=== PATIENT | female | born 1995 | race Caucasian/White ===

== ENCOUNTER 2024-02-23 05:38 | Inpatient (IN) ==
--- NOTE | 2024-02-07 11:57 | Anesthesiology Consultation ---
Date of Service February 07, 2024 Assessment & Plan (1) Encounter for pre-operative examination: - cardiology office visit 07/28/23 [place]: "...Autonomic dysfunction seems to have improved (no orthostatic BP drop today) and heart rate response to activity during exercise treadmill test was not extreme. Strongly encouraged regular aerobic exercise (even during ) to decrease adrenergic drive and hopefully diminish tachycardic response to activity or anxiety provoking stimuli. Although her mild intermittent leg edema does not seem to be due to volume retention, reasonable to moderate her sodium intake during , increase intake a few months after delivery. Would be very reluctant to use a beta-chelsie during or even afterwards, given that her sinus tachycardia is largely an exaggerated physiologic response which we would be reluctant to blunt. Her episode of palpitations today is consistent with sinus tachycardia, reassured her that although it is unpleasant it was not placing her at risk and that she could safely perform physical activity regularly to decrease the frequency of palpitations, particularly since her test did not show any adverse response to exercise. We did discuss her prior diagnoses of SVT and ventricular ectopy, although these cannot be excluded they are unlikely to play a role in her day-to-day symptomatic tachycardia. She has a pulse oximeter and will use this to record her heart rates and report any abrupt nonexertional rise to extreme levels (greater than 150 bpm) as well as to record her resting heart rate and to monitor for improvement as she increases her aerobic exercise program. She will report any unusual heart rate responses which could prompt an MCOT monitor...rather benign (PVCs were rare, but there was 1 triplet). Would first manage autonomic dysfunction and then reevaluate with MCOT monitor if palpitations persist...SVT: (supraventricular tachycardia): Not well documented, but she does note periods of abrupt increase in heart rate without position change, so difficult to exclude. In the absence of more definitive documentation and given the presence of orthostatic hypotension would be very reluctant to initiate beta-chelsie, even at low-dose, since this would blunt her physiologic response to orthostatic hypotension..." - Per specifications checker on 02/07/24: No known infectious disease contacts, current infectious disease symptoms in past 10 days or COVID positive test result in the past 30 days. 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 Surgery Operation Date: 02/23/24 07:30 Proposed Procedures p Section in LD (Delivery of Baby Through Abdominal Incision) - Estefania Figueredo DO Height/Weight Height: 5 ft 10 in Weight: 86.183 kg Allergies Allergy/AdvReac Type Severity Reaction Status Date / Time No Known Drug Allergies Allergy Verified 02/07/24 11:12 Medications Home Medications Medication Instructions Recorded Confirmed Last Taken lactobacillus combination no.4 3 3,000 mmu cells PO DAILY 06/16/21 02/07/24 Unknown billion cell capsule (Probiotic) rutin 500 mg tablet 500 mg PO QPM 06/16/21 02/07/24 Unknown 21-iron fu-folic acid 1 tab PO QAM 07/11/23 02/07/24 Unknown [ Complete] hydrocortisone 2.5 % topical cream 1 applic [place] DAILY PRN hemorrhoids 12/05/23 02/07/24 Unknown with perineal applicator #30 grams (Proctozone-HC) fluoxetine 40 mg capsule 80 mg PO QPM 02/07/24 02/07/24 Unknown Past Medical History Medical History Anxiety Autonomic dysfunction has bp drop when changing positions and tachycardia, follows with Dr. Degroot at [facility] Depression Hemorrhoids History of COVID-19 (~2019) not hospitalized, resolved Hx of migraines monthly when not Orthostatic hypotension reports BP drop when changing positions PTSD (post-traumatic stress disorder) PVC's (premature ventricular contractions) "slight" follows with Dr. Bahena [facility] SVT (supraventricular tachycardia) autonomic dysfunction, follows with Dr. Bahena [facility] Past Family History Family History Mother Anxiety Depression Sister Anxiety Depression Asthma Father Hypertension Afib Smoker Grandfather (Paternal) Colorectal cancer Denies family history of Ovarian cancer Breast cancer Past Surgical History Surgical History History of tonsillectomy Status post section (10/2020) Status post incision and drainage (10/2020) thrombosed hemorrhoid [place] teeth extracted Social History Smoking Status: Never smoker Do You Dip or Chew Tobacco: No Hx Alcohol Use: No Hx Substance Use: No substance use type: does not use Testing Stress Test Date: 07/28/23 MPHR 87% Negative for myocardial ischemia or dysrhythmia
--- NOTE | 2024-02-22 16:51 | History & Physical Report ---
Date of Service February 22, 2024 Assessment & Plan (1) Previous delivery affecting , antepartum: Plan: Plan for delivery via section. Informed consent reviewed in detail in the office. Questions answered. Plan for dermabond, not steri strips. History of Present Illness Chief Complaint: Repeat Section Primary Care Provider: Elizabet Guaman DO 28yo @ 41 02/04, scheduled for repeat . Previous *planning repeat C/S SCHEDULED WITH DR. GREGORY FOR 02/22 Symptomatic hemorrhoids/anal fissures Autonomic Dysfunction *Follows with cardiology GBS + treat in labor Allergies Allergy/AdvReac Type Severity Reaction Status Date / Time No Known Drug Allergies Allergy Verified 02/22/24 10:41 Home Medications Medication Instructions Recorded Confirmed Type lactobacillus combination no.4 3 3,000 mmu cells PO DAILY 06/16/21 02/22/24 History billion cell capsule (Probiotic) rutin 500 mg tablet 500 mg PO QPM 06/16/21 02/22/24 History 21-iron fu-folic acid 1 tab PO QAM 07/11/23 02/22/24 History [ Complete] hydrocortisone 2.5 % topical cream 1 applic [place] DAILY PRN hemorrhoids 12/05/23 02/22/24 Rx with perineal applicator #30 grams (Proctozone-HC) fluoxetine 40 mg capsule 80 mg PO QPM 02/07/24 02/22/24 History Patient History Medical History Anxiety Autonomic dysfunction has bp drop when changing positions and tachycardia, follows with Dr. Degroot at [facility] Depression Hemorrhoids History of COVID-19 (~2019) not hospitalized, resolved Hx of migraines monthly when not Orthostatic hypotension reports BP drop when changing positions PTSD (post-traumatic stress disorder) PVC's (premature ventricular contractions) "slight" follows with Dr. Bahena [facility] SVT (supraventricular tachycardia) autonomic dysfunction, follows with Dr. Bahena [facility] Surgical History History of tonsillectomy Status post section (10/2020) Status post incision and drainage (10/2020) thrombosed hemorrhoid [place] teeth extracted Family History Mother Anxiety Depression Sister Anxiety Depression Asthma Father Hypertension Afib Smoker Grandfather (Paternal) Colorectal cancer Denies family history of Ovarian cancer Breast cancer Social History Smoking Status: Never smoker Second Hand Exposure: No; Do You Dip or Chew Tobacco: No; Hx Alcohol Use: No Hx Substance Use: No Preferred Language: Kenyan Communication Ability: Effective Visual Impairment: No Limitations Hearing Ability: Normal Food And Nutrition Teacher Required: No Beliefs That Will Affect Care: None marital status: marital status details: Ludin Huerta (30) [phone] Current Living Situation: Spouse and Family Current Living Situation Comment: spouse and daughter, dog, cats-spouse changing litter current occupational status: unemployed current occupation: homemaker How many Children do You have: 1 Feels Safe at Home: Yes Childhood Exposure to Second-Hand Smoke: Yes Diet: regular Diet Comment: regular caffeine: No during the past year weight has: remained stable Dental Care, Regularly: Yes Physical Activity Frequency: Daily Seatbelt Use: always Sunscreen Use: Yes Assistive Devices: Glasses and Other Review of Systems All systems reviewed & are unremarkable except as noted in HPI & below Physical Exam Constitutional: WD/WN, vitals as above Respiratory: normal respiratory effort, lungs clear to auscultation no respiratory distress Cardiovascular: Rate/Rhythm: regular rate and regular rhythm Gastrointestinal (Abdomen): Inspection/Auscultation: abdomen normal to inspection Percussion/Palpation: abdomen soft; abdomen nontender Gravid. No s/s chorio or abruption. Skin: no rashes, warm and dry Psychiatric: A+Ox3, euthymic affect Coding Level of Care Code None Diagnoses Previous delivery affecting , antepartum O34.219
[2024-02-23] MEDS: LACTATED RINGER'S 1,000 ML IV SCH ×2 (06:00→06:58)
[2024-02-23 06:09] LABS: Hematocrit (blood only) 30.7 % (37.0-47.0); Hemoglobin 9.5 g/dl (12.0-16.0); Mean Corpuscular Hgb Conc 30.9 g/dL (32.0-36.0); Mean Corpuscular Volume 83.9 fL (80.0-100.0); Mean Platelet Volume 10.7 fL (9.4-12.4); Platelet Count 178 K/uL (130-400); RDW Coefficient of Variation 15.3 % (11.5-14.5); RDW Standard Deviation 46.3 fL (36.4-46.3); Red Blood Count 3.66 M/uL (4.20-5.40); White Blood Count 8.18 K/ul (4.8-10.8)
--- NOTE | 2024-02-23 07:15 | History & Physical Bridge Note ---
Date of Service February 23, 2024 History & Physical Bridge Note I have examined the patient, reviewed the History & Physical and in the interval since the performance of the History & Physical I have noted the following changes of clinical significance: no changes noted
[2024-02-23] MEDS ORDERED: OXYTOCIN 10 UNITS/ML VIAL ONE (07:25)
[2024-02-23] MEDS ORDERED: ONDANSETRON INJ 2 MG/ML 2 ML VIAL ONE ×2 (07:25→08:21)
[2024-02-23] MEDS ORDERED: PHENYLEPHRINE HCL 10 MG/ML VIAL ONE (07:25)
[2024-02-23] MEDS ORDERED: KETOROLAC 30 MG/ML VIAL ONE (07:26)
[2024-02-23] MEDS ORDERED: MoRPHine SULFATE PF 1 MG/ML 10 ML AMP/VIAL ONE (07:26)
[2024-02-23] MEDS: ceFAZolin 2,000 MG in SYRINGE 0 ML IV SCH (07:34)
--- NOTE | 2024-02-23 07:34 | Anesthesiology Consultation ---
Date of Service February 23, 2024 Assessment & Plan Chart Review Chart Review: Acceptable Risk for Surgery and Patient NOT seen in Pre Admission Testing Consults Requested none ASA ASA2 Proposed Anesthesia Anesthesia Type: Spinal (+ intrathecal narcotics) Risk / Benefits Reviewed With: PT / POA / Parent / Guardian, Accepts Plan and Informed Consent Obtained History Surgery Operation Date: 02/23/24 07:30 Proposed Procedures p Section in LD (Delivery of Baby Through Abdominal Incision) - Estefania Figueredo DO Height/Weight Height: 5 ft 10 in Weight: 85.729 kg Allergies Allergy/AdvReac Type Severity Reaction Status Date / Time No Known Drug Allergies Allergy Verified 02/22/24 10:41 Medications Home Medications Medication Instructions Recorded Confirmed Last Taken lactobacillus combination no.4 3 3,000 mmu cells PO DAILY 06/16/21 02/23/24 01/20/24 billion cell capsule (Probiotic) rutin 500 mg tablet 500 mg PO QPM 06/16/21 02/23/24 02/08/24 21-iron fu-folic acid 1 tab PO QAM 07/11/23 02/23/24 01/20/24 [ Complete] hydrocortisone 2.5 % topical cream 1 applic [place] DAILY PRN hemorrhoids 12/05/23 02/23/24 02/22/24 20:00 with perineal applicator #30 grams (Proctozone-HC) fluoxetine 40 mg capsule 80 mg PO QPM 02/07/24 02/23/24 02/22/24 22:00 NPO Date Last Intake of Fluids: 02/22/24 Time Last Intake of Fluids: 21:00 Date Last Intake of Solids: 02/22/24 Time Last Intake of Solids: 21:00 Past Medical History Medical History Anxiety Autonomic dysfunction has bp drop when changing positions and tachycardia, follows with Dr. Degroot at [facility] Depression Hemorrhoids History of COVID-19 (~2019) not hospitalized, resolved Hx of migraines monthly when not Orthostatic hypotension reports BP drop when changing positions PTSD (post-traumatic stress disorder) PVC's (premature ventricular contractions) "slight" follows with Dr. Bahena [facility] SVT (supraventricular tachycardia) autonomic dysfunction, follows with Dr. Bahena [facility] Exercise / Class Metabolic Activity II 4-5 Yardwork/Stairs/Walk up hill Past Family History Family History Mother Anxiety Depression Sister Anxiety Depression Asthma Father Hypertension Afib Smoker Grandfather (Paternal) Colorectal cancer Denies family history of Ovarian cancer Breast cancer Past Surgical History Surgical History History of tonsillectomy Status post section (10/2020) Status post incision and drainage (10/2020) thrombosed hemorrhoid [place] teeth extracted Past Anesthesia History No Hx of Anesthesia Complications and No Family Hx of Anesthesia Complications History of PONV No Hx of PONV and No Hx of Motion Sickness Social History Smoking Status: Never smoker Do You Dip or Chew Tobacco: No Hx Alcohol Use: No Hx Substance Use: No substance use type: does not use Physical Exam Vital Signs Last Vital Signs Temp 36.5 C 02/23/24 05:55 Pulse 96 H 02/23/24 07:12 Resp 20 02/23/24 07:16 BP 135/84 02/23/24 07:12 ENMT Mouth: no dentition abnormality Thyromental Distance: > or= 3.5 Finger Breadths Mallampati Class: II Neck normal visual inspection Respiratory normal respiratory effort Auscultation: lungs clear to auscultation bilaterally Cardiovascular Rate/Rhythm: regular rate and regular rhythm Psychiatric Orientation: alert Testing Laboratory Results 02/23/24 05:55 Blood Type A Positive 02/23/24 05:55 Antibody Screen NEGATIVE 02/23/24 05:55 Stress Test Date: 07/28/23 MPHR 87% Negative for myocardial ischemia or dysrhythmia
[2024-02-23] MEDS: CITRIC ACID/SODIUM CITRATE 15 ML UDC PO SCH (07:39)
--- NOTE | 2024-02-23 08:49 | Operative Report ---
PG Post Operative Report Pre & Post Diagnosis Operation Date: 02/23/24 07:30 Pre: history of x 1, desire for repeat Post: same I identified the patient and participated in the time-out.: Yes Procedure Operation Date: 02/23/24 07:30 Repeat low transverse section Surgeon Estefania Figueredo, DO Inside Steward/Stewardess Coleman Conway MD Estimated Blood Loss 371 (QBL) Findings Consistent with Post-Op Diagnosis Viable male , Apgars 8/9. Normal appearing uterus, tubes, ovaries . Specimens cord gas, cord blood, placenta Drains [place] clear yellow Anesthesia Type Spinal Complications none Disposition Accompanied Patient To Recovery: Yes Disposition: L&D Indications 28yo @ 41 02/04, history of section x 1, desire for repeat. Description of Procedure The patient was seen in her labor and delivery room, risks benefits and alternatives to surgery were reviewed. Informed consent obtained. Questions were answered. She was taken to the operating room, spinal anesthesia was administered. She was then prepared and draped in the usual sterile fashion in the supine position with a leftward tilt. Timeout was confirmed. A Pfannenstiel skin incision was made with a scalpel, and carried through to the underlying layer of fascia. Fascia was nicked at midline, and this incision was extended bilaterally. The superior aspect of the fascial incision was grasped with Mei clamps x2, elevated off the underlying rectus abdominis muscles, and dissected sharply and bluntly. In similar fashion, the inferior aspect of the fascial incision was dissected. The rectus abdominis muscles were , and the peritoneum was entered bluntly digitally. This was extended bilaterally. The bladder flap was taken down carefully using Metzenbaum scissors. Using a new scalpel, a low transverse uterine incision was created. Clear amniotic fluid noted. The infant was delivered from a cephalic presentation. The head delivered, followed by shoulders and body. Spontaneous cry on the field. The cord was doubly clamped and cut, and the was handed off to the waiting superintendent schools. A segment was retained for cord gases. Cord blood was obtained. The placenta was delivered spontaneously intact. The uterus was exteriorized, and cleared of all clots and debris. The hysterotomy incision was reapproximated using 0 Vicryl in a running locked stitch. A second layer of the same suture was used to imbricate the incision. Posterior uterus was evaluated and normal. The uterus was returned to the abdomen, and gutters were cleared of clots and debris. Excellent hemostasis was observed. The fascial incision was reapproximated using 0 Vicryl in a running stitch. The subcutaneous tissue was irrigated, and reapproximated using 2-0 plain gut in a running stitch. The skin was reapproximated using 4-0 Vicryl in a running subcuticular stitch. Dermabond was applied. The patient tolerated the procedure well, and will be taken to the recovery area in stable and good condition. I attest to the content of the Intraoperative Record and any orders documented therein. Any exceptions are noted below. OB Procedure Charges 79298
[2024-02-23] MEDS ORDERED: IBUPROFEN 600 MG TAB PO PRN (08:55)
[2024-02-23] MEDS ORDERED: LACTATED RINGER'S 1,000 ML IV SCH (08:55)
[2024-02-23] MEDS ORDERED: MAGNESIUM HYDROXIDE SUSP 30 ML UDC PO PRN (08:55)
[2024-02-23] MEDS ORDERED: HYDROCORTISONE ACETATE 25 MG SUPP PR PRN (08:55)
[2024-02-23] MEDS ORDERED: BENZOCAINE 20% SPRY 85 APPLN/85 GM CAN EXT PRN (08:55)
[2024-02-23] MEDS ORDERED: SENNA 8.6 MG TAB PO PRN (08:55)
[2024-02-23] MEDS ORDERED: LACTATED RINGER'S 500 ML IV PRN (08:59)
[2024-02-23] MEDS ORDERED: PROMETHAZINE HCL 6.25 MG in SODIUM CHLORIDE 0.9% 50 ML IV PRN (08:59)
[2024-02-23] MEDS ORDERED: NALOXONE HCL 0.08 MG in SYRINGE 1.8 ML IV PRN (08:59)
[2024-02-23] MEDS ORDERED: ePHEDrine sulfate 50 MG/ML AMP IV PRN (08:59)
[2024-02-23] MEDS ORDERED: NALBUPHINE HCL 5 MG in SYRINGE 0 ML IV PRN (08:59)
[2024-02-23] MEDS ORDERED: HYDROmorphone INJ 0.5 MG/0.5 ML SYR IV PRN (08:59)
[2024-02-23] MEDS ORDERED: NALOXONE HCL 0.4 MG/1 ML VIAL/CARP IV PRN (08:59)
[2024-02-23] MEDS ORDERED: diphenhydrAMINE 50 MG/ML VIAL IV PRN (08:59)
[2024-02-23] MEDS ORDERED: MEPERIDINE HCL 25 MG/ML CARP/VIAL IV PRN (08:59)
[2024-02-23] MEDS ORDERED: MoRPHine SULFATE PF 1 MG/ML 10 ML AMP/VIAL INT SPINAL ONE (08:59)
[2024-02-23] MEDS ORDERED: MoRPHine SULFATE 2 MG/ML CARP IV PRN (08:59)
[2024-02-23] MEDS ORDERED: NALOXONE HCL 1 MG in SODIUM CHLORIDE 0.9% 1,000 ML IV PRN (08:59)
[2024-02-23] MEDS ORDERED: ONDANSETRON INJ 2 MG/ML 2 ML VIAL IV PRN (08:59)
[2024-02-23 09:00] LABS: Base Excess Cord Arterial Bld -2.3 mEq/L (-9-1.8); Base Excess Cord Venous Blood -1.7 mEq/L (-7.7-1.9); CO2 Cord Arterial Blood 33 mmHg (39.1-73.5); Cord Venous Blood HCO3 22 mmol/L (18.4-26.8); Cord Venous Blood PCO2 34 mmHg (30.4-57.2); Cord Venous Blood PO2 32 mmHg (14.1-43.3); Cord Venous Blood pH 7.42 (7.20-7.44); HCO3 Cord Arterial Blood 21 mmol/L (19.7-28.5); O2 Saturation Cord Venous Bld 73.5 % (<68); Oxygen Sat Cord Arterial Blood 69.8 % (<60); PO2 Cord Arterial Blood 31 mmHg (4.1-31.7); pH Cord Arterial Blood 7.42 (7.1-7.38)
[2024-02-23] MEDS ORDERED: SODIUM CHLORIDE 0.9% 1,000 ML IV SCH (09:00)
[2024-02-23] MEDS ORDERED: DC INTRASPINAL MORPHINE SCH (09:00)
[2024-02-23] MEDS ORDERED: NO NARCOTICS OR SEDATIVES SCH (09:00)
[2024-02-23] MEDS: ACETAMINOPHEN 1,000 MG/100 ML VIAL IV PRN (09:30)
[2024-02-23] MEDS: DIPHTHER/TETAN/PERTUS Vaccine (Tdap, Adol/Adult) 0.5mL IM ONE (10:50)
[2024-02-23] MEDS: SIMETHICONE 80 MG CHEW PO SCH (12:15)
[2024-02-23] MEDS ORDERED: GELATIN SPONGE SZ 100 ONE (13:39)
--- NOTE | 2024-02-23 13:52 | Anesthesiology Progress Note ---
Date of Service February 23, 2024 Anesthesia Post Procedure Vital Signs Vital Signs: Temp Pulse Pulse Resp BP BP Pulse Ox 02/23/24 13:20 18 99 02/23/24 12:38 16 100 02/23/24 11:45 36.7 C 62 18 111/72 99 02/23/24 11:45 02/23/24 11:45 18 99 02/23/24 11:12 78 100 02/23/24 11:07 81 100 02/23/24 11:02 63 100 02/23/24 11:00 36.7 C 20 02/23/24 10:57 99 02/23/24 10:57 84 02/23/24 10:57 74 107/56 L 02/23/24 10:52 92 H 99 02/23/24 10:47 99 02/23/24 10:47 80 02/23/24 10:47 81 112/55 L 02/23/24 10:42 82 99 02/23/24 10:37 89 105/54 L 99 02/23/24 10:32 80 100 02/23/24 10:27 84 110/53 L 98 02/23/24 10:22 83 99 02/23/24 10:18 82 116/54 L 02/23/24 10:17 84 100 02/23/24 10:12 86 99 02/23/24 10:08 93 H 106/70 02/23/24 10:07 88 100 02/23/24 10:02 83 99 02/23/24 09:57 80 105/58 L 100 02/23/24 09:52 84 99 02/23/24 09:50 93 H 20 106/70 02/23/24 09:50 36.7 C 20 02/23/24 09:50 86 18 100 02/23/24 09:47 100 02/23/24 09:47 87 02/23/24 09:47 90 111/57 L 02/23/24 09:42 86 100 02/23/24 09:40 88 20 111/61 100 02/23/24 09:37 88 111/61 100 02/23/24 09:32 70 100 02/23/24 09:28 20 02/23/24 09:28 90 102/59 L 02/23/24 09:27 94 H 99 02/23/24 09:22 82 97 02/23/24 09:17 20 02/23/24 09:17 100 02/23/24 09:17 82 02/23/24 09:17 72 103/55 L 02/23/24 09:12 92 H 100 02/23/24 09:07 20 02/23/24 09:07 81 114/59 L 100 02/23/24 09:02 86 100 02/23/24 08:57 36.5 C 20 02/23/24 08:57 82 110/55 L 100 02/23/24 08:52 76 100 02/23/24 08:47 100 02/23/24 08:47 78 02/23/24 08:47 86 123/76 02/23/24 07:16 20 02/23/24 07:12 96 H 20 135/84 02/23/24 06:08 95 H 118/74 02/23/24 05:55 16 02/23/24 05:55 36.5 C 16 Pulse Ox O2 Del Method O2 Del Method 02/23/24 13:20 02/23/24 12:38 02/23/24 11:45 Room Air 02/23/24 11:45 99 Room Air 02/23/24 11:45 02/23/24 11:12 02/23/24 11:07 02/23/24 11:02 02/23/24 11:00 02/23/24 10:57 02/23/24 10:57 02/23/24 10:57 02/23/24 10:52 02/23/24 10:47 02/23/24 10:47 02/23/24 10:47 02/23/24 10:42 02/23/24 10:37 02/23/24 10:32 02/23/24 10:27 02/23/24 10:22 02/23/24 10:18 02/23/24 10:17 02/23/24 10:12 02/23/24 10:08 02/23/24 10:07 02/23/24 10:02 02/23/24 09:57 02/23/24 09:52 02/23/24 09:50 02/23/24 09:50 02/23/24 09:50 02/23/24 09:47 02/23/24 09:47 02/23/24 09:47 02/23/24 09:42 02/23/24 09:40 02/23/24 09:37 02/23/24 09:32 02/23/24 09:28 02/23/24 09:28 02/23/24 09:27 02/23/24 09:22 02/23/24 09:17 02/23/24 09:17 02/23/24 09:17 02/23/24 09:17 02/23/24 09:12 02/23/24 09:07 02/23/24 09:07 02/23/24 09:02 02/23/24 08:57 02/23/24 08:57 02/23/24 08:52 02/23/24 08:47 02/23/24 08:47 02/23/24 08:47 02/23/24 07:16 02/23/24 07:12 02/23/24 06:08 02/23/24 05:55 02/23/24 05:55 Pain Intensity Bilateral Abdomen: Pain Intensity: 3 Transfer of Care Handoff Completed per policy Notes Mental Status: alert / awake / arousable Nausea / Vomiting: adequately controlled Pain: adequately controlled Airway Patency, RR, SpO2: stable & adequate BP & HR: stable & adequate Hydration State: stable & adequate Neuraxial Anesthesia: was administered and sensory block is resolving Anesthetic Complications: no major complications apparent and Pt Satisfied with anesthetic care
[2024-02-23] MEDS: KETOROLAC 30 MG/ML VIAL IV PRN (14:57)
[2024-02-23] MEDS: OXYTOCIN 20 UNITS/LR 1,002 ML IV SCH (17:55)
[2024-02-23] MEDS: FLUoxetine HCL 20 MG CAP PO SCH (20:22)
[2024-02-23] MEDS: DOCUSATE SODIUM 100 MG CAP PO SCH (20:22)
[2024-02-24] MEDS ORDERED: PROMETHAZINE HCL 25 MG in SODIUM CHLORIDE 0.9% 50 ML IV PRN (02:59)
[2024-02-24] MEDS ORDERED: ONDANSETRON INJ 2 MG/ML 2 ML VIAL IV PRN (02:59)
[2024-02-24] MEDS ORDERED: diphenhydrAMINE Capsule 25 MG CAP PO PRN (02:59)
[2024-02-24] MEDS ORDERED: KETOROLAC 30 MG/ML VIAL IV PRN (02:59)
[2024-02-24] MEDS ORDERED: diphenhydrAMINE 50 MG/ML VIAL IV PRN (02:59)
[2024-02-24] MEDS: oxyCODONE/ACETAMINOPHEN 5mg/325mg TAB PO PRN (03:06)
[2024-02-24] MEDS: IBUPROFEN 600 MG TAB PO PRN (03:07)
--- NOTE | 2024-02-24 06:07 | Obstetrical Progress Note ---
Date of Service February 24, 2024 Assessment & Plan (1) care following delivery: Plan: Doing well Encourage ambulation Pain control Admission and Anticipated Discharge Date Admission Date: February 23, 2024 Supervising Physician Co-Signing Physician Notes Resident Physician Supervision Note: I was present with Dr. Velasquez during the history and exam. I discussed the case with the resident and agree with the findings and plan as documented in the note. Any exceptions or clarifications are listed here: POD#1 doing well. Incision CDI. Routine /postop care today, anticipate DC home tomorrow. Documented By: Estefania Figueredo, Subjective 28 yo post op day 1 s/p Ambulation: ambulating normally Voiding: no voiding problems Passing Gas:: Yes Diet Tolerance:: regular diet Lochia:: Small Feeding Type:: breast feeding Current Pain Level: moderate Resting comfortably this AM in NAD. Denies EDMOND, CP, SOB, N/V/D, LE pain/swelling. Review of Systems Review of Systems: reviewed, per HPI Physical Exam Physical Exam: General: patient resting comfortably, NAD, non-toxic in appearance, answers questions appropriately. Skin: warm, dry, intact HEENT: NC/AT, anicteric sclera, conjunctiva without injection, moist mucus membranes. Heart: +S1/S2, regular, no m/r/g Lungs: equal air entry bilaterally, no rales/rhonchi/wheezes Abd: +BS, soft, NT/ND, uterine fundus firm at umbilicus, caesarean incision C/D/I. Ext: warm, no clubbing/cyanosis or edema, Leah's neg. Neuro: nonfocal, speech intact, no facial droop, moving all extremities. Results & Data Vital Signs (Past 12 Hours) Vital Signs Temp Pulse Resp BP Pulse Ox O2 Del Method 02/24/24 04:30 68 02/24/24 03:05 36.7 C 100 H 20 128/74 99 Room Air 02/24/24 02:15 18 98 02/24/24 01:15 18 98 02/24/24 00:00 18 100 02/23/24 23:15 18 100 02/23/24 23:10 36.8 C 74 18 112/65 100 Room Air 02/23/24 22:00 18 98 02/23/24 21:00 18 96 02/23/24 20:15 18 95 02/23/24 20:15 36.7 C 71 18 116/67 95 Room Air 02/23/24 19:00 18 96 Resident Activity Tracking Resident Involvement: Resident Care Provided Care Provided: Adult Hospital Medicine
[2024-02-24 07:07] LABS: Basophils # (auto) 0.01 K/uL (0.00-0.20); Basophils % (auto) 0.1 %; Eosinophils # (auto) 0.02 K/uL (0.00-0.50); Eosinophils % (auto) 0.2 %; Hematocrit (blood only) 28.1 % (37.0-47.0); Hemoglobin 8.7 g/dl (12.0-16.0); Immature Granulocytes # (auto) 0.12 K/uL (0.01-0.20); Immature Granulocytes % (auto) 1.1 %; Lymphocytes # (auto) 0.83 K/uL (1.20-3.40); Lymphocytes % (auto) 7.7 %; Mean Corpuscular Hemoglobin 25.7 pg (25.0-34.0); Mean Corpuscular Volume 82.9 fL (80.0-100.0); Mean Platelet Volume 10.9 fL (9.4-12.4); Monocytes # (auto) 0.67 K/uL (0.11-0.59); Monocytes % (auto) 6.2 %; Neutrophils # (auto) 9.15 K/uL (1.40-6.50); Neutrophils % (auto) 84.7 %; Platelet Count 161 K/uL (130-400); RDW Coefficient of Variation 15.5 % (11.5-14.5); RDW Standard Deviation 46.5 fL (36.4-46.3); Red Blood Count 3.39 M/uL (4.20-5.40)
[2024-02-24] MEDS: FERROUS SULFATE 325 MG TAB PO SCH (07:38)
[2024-02-24] MEDS: PRENATAL VITAMIN 1 TAB PO SCH (07:39)
[2024-02-24] MEDS: bisacodyL 5 MG TABEC PO SCH (21:06)
[2024-02-25] MEDS: CALCIUM CARBONATE 500 MG CHEWABLE TAB PO PRN (01:20)
--- NOTE | 2024-02-25 06:25 | Obstetrical Progress Note ---
Date of Service February 25, 2024 Assessment & Plan (1) care following delivery: Plan: Doing well Encourage ambulation Pain control Routine post op care dc today Admission and Anticipated Discharge Date Admission Date: February 23, 2024 Supervising Physician Co-Signing Physician Notes Resident Physician Supervision Note: I interviewed and examined the patient. Discussed with Dr. Velasquez and agree with findings and plan as documented in the note. Any exceptions or clarifications ar e listed here: Doing well. Desires d/c today. INstructions reviewed. f/u 6 weeks. Documented By: Lidia Clements MD, FACOG Subjective 28 yo post op day 2 s/p Ambulation: ambulating normally Voiding: no voiding problems Passing Gas:: Yes Diet Tolerance:: regular diet Lochia:: Small Feeding Type:: breast feeding Current Pain Level: moderate Resting comfortably this AM in NAD. Denies EDMOND, CP, SOB, N/V/D, LE pain/swelling. Review of Systems Review of Systems: reviewed, per HPI Physical Exam Physical Exam: General: patient resting comfortably, NAD, non-toxic in appearance, answers questions appropriately. Skin: warm, dry, intact HEENT: NC/AT, anicteric sclera, conjunctiva without injection, moist mucus membranes. Heart: +S1/S2, regular, no m/r/g Lungs: equal air entry bilaterally, no rales/rhonchi/wheezes Abd: +BS, soft, NT/ND, uterine fundus firm at umbilicus, caesarean incision C/D/I. Ext: warm, no clubbing/cyanosis or edema, Leah's neg. Neuro: nonfocal, speech intact, no facial droop, moving all extremities. Results & Data Vital Signs (Past 12 Hours) Vital Signs Temp Pulse Resp BP Pulse Ox O2 Del Method 02/24/24 23:20 36.8 C 92 H 18 109/70 97 Room Air Resident Activity Tracking Resident Involvement: Resident Care Provided Care Provided: Adult Hospital Medicine
[2024-02-25 07:49] LABS: Hematocrit (blood only) 28.9 % (37.0-47.0); Hemoglobin 8.8 g/dl (12.0-16.0)
[2024-02-25] MEDS ORDERED: bisacodyL 10 MG SUPP PR PRN (08:44)
== END 2024-02-25 11:45 | disposition home or self-care (01) | DRG 787 ==
LOC: 4S1 05:38 → EDSTATUS 07:30 → 4E2 11:25